=== PATIENT | female | born 1965 | race Caucasian/White ===

== ENCOUNTER 2016-09-13 09:02 | Day surgery (SDC) | payer MEDICARE, BC ==
[2016-09-13] MEDS ORDERED: DIPRIVAN 200 MG/20 ML IV ONE (10:00)
--- NOTE | 2016-09-13 13:15 | XRAY ---
Indication: Left L3-S1 MBB. Intraoperative fluoroscopy was provided for 6 seconds. Single digital spot image submitted for interpretation demonstrates 4 posterior spinal needles with the tips projecting adjacent to the left L3-S1 superior facets. Correlate with intraoperative findings/report.
[2016-09-13] MEDS ORDERED: Lactated Ringers IV ONE (15:27)
[2016-09-13] MEDS ORDERED: Kenalog-40 IM ONE (15:27)
[2016-09-13] MEDS ORDERED: Sensorcaine 0.25% 10 ML IJ ONE (15:27)
--- NOTE | 2016-09-13 16:35 | XRAY ---
6 seconds of fluoroscopy was used in surgery for a left MBB L3-S1.
== END 2016-09-13 12:40 | disposition home or self-care (01) ==
LOC: SDC-PAIN 09:02
PROVIDERS: ATTEND Pain Medicine Interventional Pain Medicine
DX: M51.36 Other intervertebral disc degeneration, lumbar region (principal); M47.816 Spondylosis without myelopathy or radiculopathy, lumbar region; M54.6 Pain in thoracic spine; Z79.891 Long term (current) use of opiate analgesic
CPT/HCPCS: 64493; 64494; 64495; 72020; 77003; J2704; J3301

== ENCOUNTER 2016-10-18 15:02 | Day surgery (SDC) | payer MEDICARE, BC ==
[~2016-10-18 15:02] MED LIST: DIPRIVAN 200 MG/20 ML IV ONE; Kenalog-40 IM ONE; Lactated Ringers 1,000 ML IV ONE; Sensorcaine 0.25% 10 ML IJ ONE
--- NOTE | 2016-10-18 19:05 | XRAY ---
Indication: Right L2-L5 MBB. Intraoperative fluoroscopy was provided for 8 seconds. Single digital spot image submitted for interpretation demonstrates posterior spinal needles with the tips projecting over the expected course of the right L2-L5 nerve roots. Correlate with intraoperative findings/report.
--- NOTE | 2016-10-19 08:42 | XRAY ---
8 seconds fluoroscopy time in surgery for right L2-5 MBB.
== END 2016-10-18 17:55 | disposition home or self-care (01) ==
LOC: SDC-PAIN 15:02
PROVIDERS: ATTEND Pain Medicine Interventional Pain Medicine
DX: M51.36 Other intervertebral disc degeneration, lumbar region (principal); M47.816 Spondylosis without myelopathy or radiculopathy, lumbar region; M54.6 Pain in thoracic spine
CPT/HCPCS: 64493; 64494; 64495; 72020; 77003; J2704; J3301

== ENCOUNTER 2017-08-22 11:58 | Day surgery (SDC) | payer MEDICARE, BC ==
[2017-08-22] MEDS ORDERED: DIPRIVAN 200 MG/20 ML IV ONE (11:59)
[2017-08-22] MEDS ORDERED: LIDOCAINE HCL 2% 100 MG/5 ML IJ ONE (11:59)
[2017-08-22] MEDS ORDERED: Marcaine 0.5% SDV 10 ML IJ ONE (11:59)
[2017-08-22] MEDS ORDERED: Lactated Ringers 1,000 ML IV ONE (11:59)
--- NOTE | 2017-08-22 14:52 | XRAY ---
15 seconds fluoroscopy time used in surgery for left L3-4 MBB.
--- NOTE | 2017-08-23 13:17 | OP ---
DATE OF PROCEDURE: 08/22/2017 1311 SURGEON: Tre Weston D.O. PREOPERATIVE DIAGNOSIS: Degenerative lumbar spine disease, spondylosis, low back pain. POSTOPERATIVE DIAGNOSIS: Degenerative lumbar spine disease, spondylosis, low back pain. PROCEDURE PERFORMED: Left L4-L3 medial branch block under fluoroscopic guidance. DESCRIPTION OF THE PROCEDURE: The patient was taken to the operating room and placed in the prone position on the table. Skin at the injection site was prepped and draped in sterile fashion. Under fluoroscopy, bony anatomy of the targeted injection site was visualized. Induction agent was given as per anesthesia while vital signs were monitored. Local anesthetic agent of 2 cc of 1% lidocaine preservative free was introduced to anesthetize the skin and the subcutaneous tissue through the injection site. Under fluoroscopic guidance, a #20 gauge standard spinal needle was advanced into the target medial branch through the oblique approach. The preservative free 0.5 cc of 1% lidocaine and 0.5 cc of 0.25 - 0.5% Marcaine were injected into each of the targeted medial branch nerve. After the needle was being removed, the skin was cleansed with alcohol and then a bandage was applied. No complications or adverse consequences were observed. The patient was returned to the holding area until stabilized before discharge to home. After the patient had been fully recovered from anesthesia, the patient states 100% pain reduction after the procedure. The patient will be followed up within ten days after the injection for re-evaluation.
--- NOTE | 2017-08-27 14:36 | XRAY ---
Indication: Left L3-L4 MBB. Intraoperative fluoroscopy was provided for 15 seconds. 2 digital spot images submitted for interpretation demonstrates posterior spinal needles with the tips projected over the expected course of the left L3 and L4 nerve roots. Correlate with intraoperative findings/report.
== END 2017-08-22 13:53 | disposition home or self-care (01) ==
LOC: SDC-PAIN 11:58
PROVIDERS: ATTEND Internal Medicine
DX: M46.96 Unspecified inflammatory spondylopathy, lumbar region (principal); M54.5 Low back pain; M67.832 Other specified disorders of synovium, left wrist
CPT/HCPCS: 64493; 64494; 72020; 77003; J2704

== ENCOUNTER 2017-09-26 10:03 | Day surgery (SDC) | payer MEDICARE, BC ==
[2017-09-26] MEDS ORDERED: XYLOCAINE-MPF 1% 5ML SDV IJ ONE (10:04)
[2017-09-26] MEDS ORDERED: DIPRIVAN 200 MG/20 ML IV ONE (10:04)
[2017-09-26] MEDS ORDERED: Xylocaine-Mpf 2% 5 Ml Vial IJ ONE (10:04)
[2017-09-26] MEDS ORDERED: Lactated Ringers 1,000 ML IV ONE (10:04)
[2017-09-26] MEDS ORDERED: Marcaine 0.5% SDV 10 ML IJ ONE (10:04)
--- NOTE | 2017-09-26 11:18 | XRAY ---
Indication: Left L4-L5 MBB. Intraoperative fluoroscopy was provided for 14 seconds. 3 digital spot images submitted for interpretation demonstrates 2 posterior spinal needle tips projecting over the left L3 and L4 pedicles. Correlate with intraoperative findings/report.
[2017-09-26] MEDS ORDERED: XYLOCAINE-MPF 1% 5ML SDV ONE (12:00)
--- NOTE | 2017-09-26 14:05 | XRAY ---
14 seconds fluoroscopy time in surgery for left L4-5 MBB.
--- NOTE | 2017-09-26 14:48 | OP ---
DATE OF PROCEDURE: 09/26/2017 1045 SURGEON: Tre Weston D.O. PREOPERATIVE DIAGNOSIS: Degenerative lumbar spine disease, spondylosis, low back pain. POSTOPERATIVE DIAGNOSIS: Degenerative lumbar spine disease, spondylosis, low back pain. PROCEDURE PERFORMED: Left L4-L3 medial branch block under fluoroscopic guidance. DESCRIPTION OF THE PROCEDURE: The patient was taken to the operating room and placed in the prone position on the table. Skin at the injection site was prepped and draped in sterile fashion. Under fluoroscopy, bony anatomy of the targeted injection site was visualized. Induction agent was given as per anesthesia while vital signs were monitored. Local anesthetic agent of 0.5 cc of 1% lidocaine preservative free was introduced to anesthetize the skin and the subcutaneous tissue through the injection site. Under fluoroscopic guidance, a #20 gauge standard spinal needle was advanced into the target medial branch through the oblique approach. The preservative free 0.5 cc of 1% lidocaine and 0.5 cc of 0.25% Marcaine were injected into each of the targeted medial branch nerve. After the needle was being removed, the skin was cleansed with alcohol and then a bandage was applied. No complications or adverse consequences were observed. The patient was returned to the holding area until stabilized before discharge to home. Preoperative pain level is 10 out of 10 and postoperative pain level is 2 out of 10. The patient will be followed up within ten days after the injection for re-evaluation.
== END 2017-09-26 11:30 | disposition home or self-care (01) ==
LOC: SDC-PAIN 10:03
PROVIDERS: ATTEND Internal Medicine
DX: M46.96 Unspecified inflammatory spondylopathy, lumbar region (principal); M62.838 Other muscle spasm; Z79.891 Long term (current) use of opiate analgesic
CPT/HCPCS: 64493; 64494; 72020; 76000; J2704

== ENCOUNTER 2017-10-24 13:19 | Day surgery (SDC) | payer MEDICARE, BC ==
[2017-10-24] MEDS ORDERED: Marcaine 0.5% SDV 10 ML IJ ONE (13:20)
[2017-10-24] MEDS ORDERED: DIPRIVAN 200 MG/20 ML IV ONE (13:20)
[2017-10-24] MEDS ORDERED: Xylocaine-Mpf 2% 5 Ml Vial IJ ONE ×2 (13:20)
[2017-10-24] MEDS ORDERED: Lactated Ringers 1,000 ML IV ONE (14:15)
--- NOTE | 2017-10-24 15:40 | XRAY ---
Indication: Left L4-L5 RFA. Intraoperative fluoroscopy was provided for 22 seconds. 2 digital spot images submitted for interpretation demonstrates posterior spinal needle tips projecting over the left L4 and L5 pedicles. Correlate with intraoperative findings/report.
--- NOTE | 2017-10-24 17:00 | XRAY ---
22 seconds fluoroscopy time in surgery for left L4-5 RFA.
--- NOTE | 2017-10-25 11:26 | OP ---
DATE OF PROCEDURE: 10/24/2017 1428 SURGEON: Tre Weston D.O. PREOPERATIVE DIAGNOSIS: Degenerative lumbosacral spine disease, spondylosis, low back pain. POSTOPERATIVE DIAGNOSIS: Degenerative lumbosacral spine disease, spondylosis, low back pain. PROCEDURES PERFORMED: Left L4, L3 medial branch radiofrequency ablation under fluoroscopic guidance. DESCRIPTION OF PROCEDURE: The patient was taken to the operating room and laid in the prone position on the table. The skin over the injection site was prepped and draped in sterile fashion. Under fluoroscopy bony anatomy of the target injection site was visualized. Induction agent was given as per anesthesia while vital signs were monitored. Local anesthetic agent was introduced to anesthetize the skin and the subcutaneous tissue through the injection site. Under fluoroscopic guidance a standard size spinal needle with cannula was advanced into the target medial branch nerve as per standard protocol. Before the radiofrequency ablation motor and sensory nerve testing was conducted as per protocol. Under the safety guidance which ensured no motor nerves being involved, L4, L3 radiofrequency ablation was conducted at 80 degrees Celsius for 90 seconds as per standard protocol. After the spinal needle with the cannula was removed the skin was cleansed with alcohol and then a bandage was applied. No complications or adverse occurrences were observed. The patient was returned to the holding area until stabilized before being discharged to home. The preoperative pain level is 10 out of 10 and the postoperative pain level is 3 out of 10. The patient will be followed up within 10 days after the procedure for re-evaluation.
== END 2017-10-24 15:15 | disposition home or self-care (01) ==
LOC: SDC-PAIN 13:19
PROVIDERS: ATTEND Internal Medicine
DX: M46.96 Unspecified inflammatory spondylopathy, lumbar region (principal); M62.838 Other muscle spasm; M51.36 Other intervertebral disc degeneration, lumbar region; Z79.891 Long term (current) use of opiate analgesic
CPT/HCPCS: 64635; 64636; 72020; 77003; J2704

== ENCOUNTER 2017-11-21 12:51 | Day surgery (SDC) | payer MEDICARE, BC ==
[2017-11-21] MEDS ORDERED: XYLOCAINE-MPF 1% 5ML SDV IJ ONE (12:52)
[2017-11-21] MEDS ORDERED: Marcaine Mpf 0.5% Vial 30 Ml IJ ONE (12:52)
[2017-11-21] MEDS ORDERED: DIPRIVAN 200 MG/20 ML IV ONE (12:52)
[2017-11-21] MEDS ORDERED: Lactated Ringers 1,000 ML IV ONE (13:12)
--- NOTE | 2017-11-21 18:33 | XRAY ---
Exam: Single view spine from 11/21/2017. Comparison: Single view spine from 10/24/2017. Indication: Right L3-L5 MBB Findings: 24 seconds of intraoperative fluoroscopy time was utilized using the C-arm. 3 PA fluoroscopic images are submitted for evaluation. Degenerative disc disease is seen at L4-L5, more prominent to the right of midline. Spinal needle tips are seen projected over the upper aspect of the right L3 pedicle and L4 pedicle as well as the central aspect of the right L5 pedicle. Please correlate with intraoperative findings/report.
--- NOTE | 2017-11-22 08:05 | XRAY ---
24 seconds fluoroscopy time in surgery for right L3-5 MBB.
--- NOTE | 2017-11-22 09:27 | OP ---
DATE OF PROCEDURE: 11/21/2017 1419 SURGEON: Tre Weston D.O. PREOPERATIVE DIAGNOSIS: Degenerative lumbar spine disease, spondylosis, low back pain. POSTOPERATIVE DIAGNOSIS: Degenerative lumbar spine disease, spondylosis, low back pain. PROCEDURE PERFORMED: Right L4, L3, L2 medial branch block under fluoroscopic guidance. DESCRIPTION OF THE PROCEDURE: The patient was taken to the operating room and placed in the prone position on the table. Skin at the injection site was prepped and draped in sterile fashion. Under fluoroscopy, bony anatomy of the targeted injection site was visualized. Induction agent was given as per anesthesia while vital signs were monitored. The medication used for this procedure is 3 cc preservative-free 0.5% Marcaine. The local anesthetic agent used is preservative-free 4 cc of 1% lidocaine. Under fluoroscopic guidance, a #20 gauge standard spinal needle was advanced into the target medial branch through the oblique approach. After the needle was being removed, the skin was cleansed with alcohol and then a bandage was applied. No complications or adverse consequences were observed. The patient was returned to the holding area until stabilized before discharge to home. Preoperative pain level is 10 out of 10 and the postoperative pain level is 2 out of 10. The patient will be followed up within ten days after the injection for re-evaluation.
== END 2017-11-21 15:00 | disposition home or self-care (01) ==
LOC: SDC-PAIN 12:51
PROVIDERS: ATTEND Internal Medicine
DX: M46.96 Unspecified inflammatory spondylopathy, lumbar region (principal); M62.838 Other muscle spasm; M51.36 Other intervertebral disc degeneration, lumbar region; Z79.891 Long term (current) use of opiate analgesic
CPT/HCPCS: 64494; 64495; 64508; 72020; 77003; J2704

== ENCOUNTER 2018-08-07 10:07 | Day surgery (SDC) | payer MEDICARE, BC ==
[2018-08-07] MEDS ORDERED: DIPRIVAN 200 MG/20 ML IV ONE (10:08)
[2018-08-07] MEDS ORDERED: Depo-Medrol 40 MG/ML IM ONE (10:08)
[2018-08-07] MEDS ORDERED: Xylocaine-Mpf 2% 5 Ml Vial IJ ONE (10:08)
--- NOTE | 2018-08-07 12:23 | XRAY ---
7 seconds fluoroscopy time in surgery for bilateral L4-S1 MBB.
--- NOTE | 2018-08-07 12:33 | XRAY ---
Indication: Bilateral L4-S1 MBB. Intraoperative fluoroscopy was provided for 7 seconds. Single digital spot image submitted for interpretation demonstrates posterior spinal needle tips projecting over the expected course of the left and right L4-S1 nerve roots. Correlate with intraoperative findings/report.
[2018-08-07] MEDS ORDERED: Lactated Ringers 1,000 ML IV ONE (15:00)
== END 2018-08-07 11:47 | disposition home or self-care (01) ==
LOC: SDC-PAIN 10:07
PROVIDERS: ATTEND Psychiatry & Neurology Pain Medicine
DX: M47.816 Spondylosis without myelopathy or radiculopathy, lumbar region (principal); I10 Essential (primary) hypertension; Z79.899 Other long term (current) drug therapy
CPT/HCPCS: 72020; 77002; J1030; J2704

== ENCOUNTER 2018-09-04 12:12 | Day surgery (SDC) | payer MEDICARE, BC ==
[2018-09-04] MEDS ORDERED: Xylocaine 1% Vial 30 ML PF IJ ONE (12:13)
[2018-09-04] MEDS ORDERED: DIPRIVAN 200 MG/20 ML IV ONE (12:13)
[2018-09-04] MEDS ORDERED: Ketamine HCl 50 MG/ML IV ONE (12:13)
[2018-09-04] MEDS ORDERED: Marcaine 0.5% SDV 10 ML IJ ONE (12:13)
[2018-09-04] MEDS ORDERED: Depo-Medrol 40 MG/ML IM ONE (12:13)
[2018-09-04] MEDS ORDERED: Lactated Ringers 1,000 ML IV ONE (14:38)
--- NOTE | 2018-09-04 16:31 | XRAY ---
9 seconds fluoroscopy time in surgery for bilateral L4-S1 MBB.
--- NOTE | 2018-09-04 16:31 | XRAY ---
Indication: L4-S1 MBB. Intraoperative fluoroscopy was provided for 9 seconds. Single digital spot image submitted for interpretation demonstrates posterior needle tips projecting over the expected course of the left and right L4-S1 nerve roots. Correlate with intraoperative findings/report.
== END 2018-09-04 14:19 | disposition home or self-care (01) ==
LOC: SDC-PAIN 12:12
PROVIDERS: ATTEND Psychiatry & Neurology Pain Medicine
DX: M47.816 Spondylosis without myelopathy or radiculopathy, lumbar region (principal); I10 Essential (primary) hypertension
CPT/HCPCS: 72100; 77002; J1030; J2001; J2704

== ENCOUNTER 2018-10-16 11:07 | Day surgery (SDC) | payer BC, MEDICARE ==
[2018-10-16] MEDS ORDERED: Marcaine 0.5% SDV 10 ML IJ ONE (11:08)
[2018-10-16] MEDS ORDERED: DIPRIVAN 200 MG/20 ML IV ONE (11:08)
[2018-10-16] MEDS ORDERED: Ketamine HCl 50 MG/ML IV ONE (11:08)
[2018-10-16] MEDS ORDERED: Xylocaine-Mpf 2 ML IJ ONE (11:08)
[2018-10-16] MEDS ORDERED: Depo-Medrol 40 MG/ML IM ONE (11:08)
[2018-10-16] MEDS ORDERED: Xylocaine 1% Vial 30 ML PF IJ ONE (11:08)
--- NOTE | 2018-10-16 14:14 | XRAY ---
12 seconds fluoroscopy time in surgery for left L4-S1 RFA
--- NOTE | 2018-10-16 14:24 | XRAY ---
Indication: Left L4-S1 RFA. Intraoperative fluoroscopy was provided for 12 seconds. 2 digital spot images submitted for interpretation demonstrates posterior needle tips projecting over the expected course of the left L4-S1 nerve roots. Correlate with intraoperative findings/report.
[2018-10-16] MEDS ORDERED: Lactated Ringers 1,000 ML IV ONE (15:40)
== END 2018-10-16 13:37 | disposition home or self-care (01) ==
LOC: SDC-PAIN 11:07
PROVIDERS: ATTEND Psychiatry & Neurology Pain Medicine
DX: M47.816 Spondylosis without myelopathy or radiculopathy, lumbar region (principal); Z79.899 Other long term (current) drug therapy; I10 Essential (primary) hypertension; F32.9 Major depressive disorder, single episode, unspecified; F41.9 Anxiety disorder, unspecified
CPT/HCPCS: 64635; 64636; 72020; 77002; J1030; J2001; J2704

== ENCOUNTER 2018-10-23 12:01 | Day surgery (SDC) | payer MEDICARE ==
[2018-10-23] MEDS ORDERED: Ketamine HCl 50 MG/ML IJ ONE (12:02)
[2018-10-23] MEDS ORDERED: DIPRIVAN 200 MG/20 ML IV ONE (12:02)
[2018-10-23] MEDS ORDERED: Depo-Medrol 40 MG/ML IM ONE (12:02)
[2018-10-23] MEDS ORDERED: Marcaine 0.5% SDV 10 ML IJ ONE (12:02)
[2018-10-23] MEDS ORDERED: Xylocaine 1% Vial 30 ML PF IJ ONE (12:02)
--- NOTE | 2018-10-23 14:39 | XRAY ---
Indication: Right L4-S1 RFA. Intraoperative fluoroscopy was provided for 20 seconds. 2 digital spot images submitted for interpretation demonstrates posterior needle tips projecting over the expected course of the right L4-S1 nerve roots. Correlate with intraoperative findings/report.
--- NOTE | 2018-10-23 14:41 | XRAY ---
20 seconds of fluoroscopy was used in surgery for a right L4-L5, L5-S1 RFA.
[2018-10-23] MEDS ORDERED: Lactated Ringers 1,000 ML IV ONE (14:56)
== END 2018-10-23 13:42 | disposition home or self-care (01) ==
LOC: SDC-PAIN 12:01
PROVIDERS: ATTEND Psychiatry & Neurology Pain Medicine
DX: M47.816 Spondylosis without myelopathy or radiculopathy, lumbar region (principal); I10 Essential (primary) hypertension; G89.29 Other chronic pain; F32.9 Major depressive disorder, single episode, unspecified; F41.9 Anxiety disorder, unspecified
CPT/HCPCS: 64635; 64636; 72100; 77002; J1030; J2001; J2704

== ENCOUNTER 2019-03-12 14:11 | Day surgery (SDC) | payer BC, MEDICARE ==
[2019-03-12] MEDS ORDERED: Marcaine 0.5% SDV 10 ML IJ ONE (14:12)
[2019-03-12] MEDS ORDERED: Depo-Medrol 40 MG/ML IM ONE (14:12)
[2019-03-12] MEDS ORDERED: Xylocaine 1% Vial 30 ML PF IJ ONE (14:12)
--- NOTE | 2019-03-12 16:34 | XRAY ---
Indication: Bilateral SI joint injection. Intraoperative fluoroscopy was provided for 11 seconds. 4 digital spot images submitted for interpretation demonstrates posterior needle tip projecting over the inferior left and right SI joint. Correlate with intraoperative findings/report.
--- NOTE | 2019-03-12 16:36 | XRAY ---
11 seconds fluoroscopy time in surgery for bilateral SI joint injections.
== END 2019-03-12 15:22 | disposition home or self-care (01) ==
LOC: SDC-PAIN 14:11
PROVIDERS: ATTEND Psychiatry & Neurology Pain Medicine
DX: M46.1 Sacroiliitis, not elsewhere classified (principal); I10 Essential (primary) hypertension; F41.8 Other specified anxiety disorders; G89.29 Other chronic pain; Z79.899 Other long term (current) drug therapy
CPT/HCPCS: 27096; 72202; 77002; J1030; J2001; G0260

== ENCOUNTER 2020-01-07 13:28 | Day surgery (SDC) | payer BC, MEDICARE ==
[2020-01-07] MEDS ORDERED: Marcaine 0.5% SDV 10 ML IJ ONE (13:29)
[2020-01-07] MEDS ORDERED: Depo-Medrol 40 MG/ML IM ONE (13:29)
[2020-01-07] MEDS ORDERED: Ketamine HCl 50 MG/ML ONE (14:45)
[2020-01-07] MEDS ORDERED: DIPRIVAN 200 MG/20 ML IV ONE (14:45)
[2020-01-07] MEDS ORDERED: Lactated Ringers 1,000 ML IV ONE (15:54)
--- NOTE | 2020-01-07 16:12 | XRAY ---
Indication: Bilateral SI joint injection. Intraoperative fluoroscopy was provided for 17 seconds. 4 digital spot images submitted for interpretation demonstrates posterior needle tip projecting over the inferior left and right SI joints. Correlate with intraoperative findings/report.
--- NOTE | 2020-01-07 16:14 | XRAY ---
17 seconds fluoroscopy time in surgery for bilateral SI joint injections.
== END 2020-01-07 15:15 | disposition home or self-care (01) ==
LOC: SDC-PAIN 13:28
PROVIDERS: ATTEND Psychiatry & Neurology Pain Medicine
DX: M46.1 Sacroiliitis, not elsewhere classified (principal); I10 Essential (primary) hypertension; G89.29 Other chronic pain; F41.8 Other specified anxiety disorders
CPT/HCPCS: 27096; 72202; 77002; J1030; J2704; G0260

== ENCOUNTER 2020-02-18 12:58 | Day surgery (SDC) | payer BC, MEDICARE ==
[2020-02-18] MEDS ORDERED: BUPIVACAINE 0.5% VIAL IJ ONE (12:59)
[2020-02-18] MEDS ORDERED: Depo-Medrol 40 MG/ML IM ONE (12:59)
[2020-02-18] MEDS ORDERED: Ketamine HCl 50 MG/ML ONE (14:17)
[2020-02-18] MEDS ORDERED: DIPRIVAN 200 MG/20 ML IV ONE (14:17)
--- NOTE | 2020-02-18 14:51 | XRAY ---
Indication: Bilateral L4-S1 MBB. Intraoperative fluoroscopy was provided for 4 seconds. Single digital spot image submitted for interpretation demonstrates posterior needle tips projecting over the expected left and right L4-S1 nerve roots. Correlate with intraoperative findings/report.
[2020-02-18] MEDS ORDERED: Lactated Ringers 1,000 ML IV ONE (15:26)
--- NOTE | 2020-02-18 17:17 | XRAY ---
4 seconds fluoroscopy time in surgery for bilateral L4-S1 MBB.
== END 2020-02-18 14:45 | disposition home or self-care (01) ==
LOC: SDC-PAIN 12:58
PROVIDERS: ATTEND Psychiatry & Neurology Pain Medicine
DX: M47.816 Spondylosis without myelopathy or radiculopathy, lumbar region (principal); I10 Essential (primary) hypertension; F41.8 Other specified anxiety disorders; Z79.899 Other long term (current) drug therapy
CPT/HCPCS: 64493; 64494; 72020; 77002; J1030; J2704

== ENCOUNTER 2020-09-01 12:56 | Day surgery (SDC) | payer BC, MEDICARE ==
[2020-09-01] MEDS ORDERED: BUPIVACAINE 0.5% VIAL IJ ONE (12:57)
[2020-09-01] MEDS ORDERED: Xylocaine 1% Vial 30 ML PF IJ ONE (12:57)
[2020-09-01] MEDS ORDERED: Depo-Medrol 40 MG/ML IM ONE (12:57)
[2020-09-01] MEDS ORDERED: DIPRIVAN 200 MG/20 ML IV ONE (14:15)
[2020-09-01] MEDS ORDERED: Ketamine HCl 50 MG/ML ONE (14:15)
--- NOTE | 2020-09-01 14:46 | XRAY ---
Indication: Left L4-S1 RFA. Intraoperative fluoroscopy provided for 17 seconds. 3 digital spot images submitted for interpretation demonstrates posterior needle tips projecting over the expected left L4-S1 nerve roots. Correlate with intraoperative findings/report.
--- NOTE | 2020-09-01 15:16 | XRAY ---
17 seconds fluoroscopy time in surgery for left L4-S1 RFA.
[2020-09-01] MEDS ORDERED: Lactated Ringers 1,000 ML IV ONE (16:17)
== END 2020-09-01 14:42 | disposition home or self-care (01) ==
LOC: SDC-PAIN 12:56
PROVIDERS: ATTEND Psychiatry & Neurology Pain Medicine
DX: M47.817 Spondylosis without myelopathy or radiculopathy, lumbosacral region (principal); I10 Essential (primary) hypertension; F41.9 Anxiety disorder, unspecified; F32.9 Major depressive disorder, single episode, unspecified; G89.29 Other chronic pain; Z79.899 Other long term (current) drug therapy
CPT/HCPCS: 64635; 64636; 72100; 77002; J1030; J2001; J2704

== ENCOUNTER 2020-09-22 11:42 | Day surgery (SDC) | payer BC, MEDICARE ==
[2020-09-22] MEDS ORDERED: Xylocaine 1% Vial 30 ML PF IJ ONE (11:43)
[2020-09-22] MEDS ORDERED: Depo-Medrol 40 MG/ML IM ONE (11:43)
[2020-09-22] MEDS ORDERED: BUPIVACAINE 0.5% VIAL IJ ONE (11:43)
[2020-09-22] MEDS ORDERED: Ketamine HCl 50 MG/ML ONE (13:41)
[2020-09-22] MEDS ORDERED: DIPRIVAN 200 MG/20 ML IV ONE (13:41)
[2020-09-22] MEDS ORDERED: Lactated Ringers 1,000 ML IV ONE (14:37)
--- NOTE | 2020-09-22 15:20 | XRAY ---
Indication: Right L4-S1 RFA. Intraoperative fluoroscopy provided for 16 seconds. 3 digital spot images submitted for interpretation demonstrate posterior needle tips projecting over the expected right L4-S1 nerve roots. Correlate with intraoperative findings/report.
--- NOTE | 2020-09-22 16:22 | XRAY ---
16 seconds of fluoroscopy was used in surgery for a right L4-L5 and L5-S1 RFA.
== END 2020-09-22 14:06 | disposition home or self-care (01) ==
LOC: SDC-PAIN 11:42
PROVIDERS: ATTEND Psychiatry & Neurology Pain Medicine
DX: M47.816 Spondylosis without myelopathy or radiculopathy, lumbar region (principal); I10 Essential (primary) hypertension; F41.8 Other specified anxiety disorders
CPT/HCPCS: 64635; 64636; 72100; 77002; J1030; J2001; J2704

== ENCOUNTER 2021-02-16 12:12 | Day surgery (SDC) | payer BC, MEDICARE ==
[2021-02-16] MEDS ORDERED: Xylocaine 1% Vial 30 ML PF IJ ONE (12:13)
[2021-02-16] MEDS ORDERED: Depo-Medrol 40 MG/ML IM ONE (12:13)
[2021-02-16] MEDS ORDERED: DIPRIVAN 200 MG/20 ML IV ONE (13:07)
[2021-02-16] MEDS ORDERED: Ketamine HCl 50 MG/ML ONE (13:07)
[2021-02-16] MEDS ORDERED: Lactated Ringers 1,000 ML IV ONE (14:06)
--- NOTE | 2021-02-16 15:27 | XRAY ---
Indication: Right T9-T12 MBB. Intraoperative fluoroscopy provided for 19 seconds. Single digital spot image submitted for interpretation demonstrates posterior needle tips projecting over the expected right T9-T12 nerve roots. Correlate with intraoperative findings/report.
--- NOTE | 2021-02-16 17:14 | XRAY ---
19 seconds fluoroscopy time in surgery for tight T9-T12 MBB.
== END 2021-02-16 14:05 | disposition home or self-care (01) ==
LOC: SDC-PAIN 12:12
PROVIDERS: ATTEND Psychiatry & Neurology Pain Medicine
DX: M47.814 Spondylosis without myelopathy or radiculopathy, thoracic region (principal); Z79.899 Other long term (current) drug therapy
CPT/HCPCS: 64490; 64491; 64492; 72072; 77002; J1030; J2001; J2704

== ENCOUNTER 2021-04-06 11:18 | Day surgery (SDC) | payer BC, MEDICARE ==
[2021-04-06] MEDS ORDERED: LIDOCAINE HCL 2% 100 MG/5 ML IJ ONE (11:19)
[2021-04-06] MEDS ORDERED: Depo-Medrol 40 MG/ML IM ONE (11:19)
[2021-04-06] MEDS ORDERED: DIPRIVAN 200 MG/20 ML IV ONE (13:48)
--- NOTE | 2021-04-06 15:18 | XRAY ---
Indication: Left T8-T11 MBB. Intraoperative fluoroscopy provided for 20 seconds. Single digital spot image submitted for interpretation demonstrates posterior needle tips projecting over the expected left T8-T11. Correlate with intraoperative findings/report.
[2021-04-06] MEDS ORDERED: Lactated Ringers 1,000 ML IV ONE (15:27)
--- NOTE | 2021-04-06 17:02 | XRAY ---
20 seconds fluoroscopy time in surgery for left T8-T11 MBB.
== END 2021-04-06 14:05 | disposition home or self-care (01) ==
LOC: SDC-PAIN 11:18
PROVIDERS: ATTEND Psychiatry & Neurology Pain Medicine
DX: M47.814 Spondylosis without myelopathy or radiculopathy, thoracic region (principal); Z79.899 Other long term (current) drug therapy
CPT/HCPCS: 64490; 64491; 64492; 72072; 77002; J1030; J2704

== ENCOUNTER 2021-05-04 13:47 | Day surgery (SDC) | payer BC, MEDICARE ==
[2021-05-04] MEDS ORDERED: Depo-Medrol 40 MG/ML IM ONE (13:48)
[2021-05-04] MEDS ORDERED: BUPIVACAINE 0.5% VIAL IJ ONE (13:48)
[2021-05-04] MEDS ORDERED: DIPRIVAN 200 MG/20 ML IV ONE (15:40)
[2021-05-04] MEDS ORDERED: Lactated Ringers 1,000 ML IV ONE (15:59)
--- NOTE | 2021-05-04 17:04 | XRAY ---
21 seconds fluoroscopy time in surgery for left T8-T11 MBB.
--- NOTE | 2021-05-04 21:40 | XRAY ---
Indication: Left T8-T11 MBB. Intraoperative fluoroscopy provided for 21 seconds. Single digital spot image submitted for interpretation demonstrates posterior needle tips projecting over the expected left T8-T11 nerve roots. Correlate with intraoperative findings/report.
== END 2021-05-04 16:06 | disposition home or self-care (01) ==
LOC: SDC-PAIN 13:47
PROVIDERS: ATTEND Psychiatry & Neurology Pain Medicine
DX: M47.814 Spondylosis without myelopathy or radiculopathy, thoracic region (principal); F41.9 Anxiety disorder, unspecified; F32.9 Major depressive disorder, single episode, unspecified; I10 Essential (primary) hypertension; M19.90 Unspecified osteoarthritis, unspecified site; Z79.899 Other long term (current) drug therapy
CPT/HCPCS: 64490; 64491; 64492; 72072; 77002; J1030; J2704

== ENCOUNTER 2021-06-09 09:55 | Day surgery (SDC) | payer BC, MEDICARE ==
[2021-06-09] MEDS ORDERED: Depo-Medrol 40 MG/ML IM ONE (09:56)
[2021-06-09] MEDS ORDERED: BUPIVACAINE 0.5% VIAL IJ ONE (09:56)
[2021-06-09] MEDS ORDERED: DIPRIVAN 200 MG/20 ML IV ONE (12:03)
[2021-06-09] MEDS ORDERED: Lactated Ringers 1,000 ML IV ONE (13:31)
--- NOTE | 2021-06-09 13:38 | XRAY ---
Indication: Right T8-T11 MBB. Intraoperative fluoroscopy provided for 15 seconds. Single digital spot image submitted for interpretation demonstrates posterior needle tips projecting over the expected right T8-T11 nerve roots. Correlate with intraoperative findings/report.
--- NOTE | 2021-06-09 14:15 | XRAY ---
15 seconds fluoroscopy time in surgery for right T8-T11 MBB.
== END 2021-06-09 12:30 | disposition home or self-care (01) ==
LOC: SDC-PAIN 09:55
PROVIDERS: ATTEND Psychiatry & Neurology Pain Medicine
DX: M47.814 Spondylosis without myelopathy or radiculopathy, thoracic region (principal); I10 Essential (primary) hypertension; Z79.899 Other long term (current) drug therapy
CPT/HCPCS: 64490; 64491; 64492; 72020; 77002; J1030; J2704

== ENCOUNTER 2021-08-03 12:40 | Day surgery (SDC) | payer BC, MEDICARE ==
[2021-08-03] MEDS ORDERED: Xylocaine 1% Vial 30 ML PF IJ ONE (12:41)
[2021-08-03] MEDS ORDERED: BUPIVACAINE 0.5% VIAL IJ ONE (12:41)
[2021-08-03] MEDS ORDERED: Depo-Medrol 40 MG/ML IM ONE (12:41)
[2021-08-03] MEDS ORDERED: DIPRIVAN 200 MG/20 ML IV ONE (15:44)
[2021-08-03] MEDS ORDERED: TORAdol 30 mg Injection ONE (16:05)
[2021-08-03] MEDS ORDERED: Lactated Ringers 1,000 ML IV ONE (16:22)
--- NOTE | 2021-08-03 16:31 | XRAY ---
Indication: Left T8-T11 RFA. Intraoperative fluoroscopy provided for 16 seconds. 2 digital spot images submitted for interpretation demonstrates posterior needle tips projecting over the expected left T8-T11 nerve roots. Correlate with intraoperative findings/report.
--- NOTE | 2021-08-03 16:35 | XRAY ---
16 seconds fluoroscopy time in surgery for left T8-T11 RFA.
== END 2021-08-03 16:15 | disposition home or self-care (01) ==
LOC: SDC-PAIN 12:40
PROVIDERS: ATTEND Psychiatry & Neurology Pain Medicine
DX: M47.814 Spondylosis without myelopathy or radiculopathy, thoracic region (principal); I10 Essential (primary) hypertension; Z79.899 Other long term (current) drug therapy
CPT/HCPCS: 01939; 64633; 64634; 72072; 77002; J1030; J1885; J2001; J2704

== ENCOUNTER 2021-08-10 11:08 | Day surgery (SDC) | payer BC, MEDICARE ==
[2021-08-10] MEDS ORDERED: BUPIVACAINE 0.5% VIAL IJ ONE (11:09)
[2021-08-10] MEDS ORDERED: Depo-Medrol 40 MG/ML IM ONE (11:09)
[2021-08-10] MEDS ORDERED: Xylocaine 1% Vial 30 ML PF IJ ONE (11:09)
[2021-08-10] MEDS ORDERED: DIPRIVAN 200 MG/20 ML IV ONE (12:09)
[2021-08-10] MEDS ORDERED: Lactated Ringers 1,000 ML IV ONE (12:19)
--- NOTE | 2021-08-10 13:20 | XRAY ---
Indication: Right T8-T11 RFA. Intraoperative fluoroscopy provided for 28 seconds. Single digital spot image submitted for interpretation demonstrates posterior needle tips projecting over the expected right T8-T11 nerve roots. Correlate with intraoperative findings/report.
--- NOTE | 2021-08-12 14:20 | XRAY ---
28 seconds of fluoroscopy was used in surgery for a right T8-T11 RFA.
== END 2021-08-10 12:40 | disposition home or self-care (01) ==
LOC: SDC-PAIN 11:08
PROVIDERS: ATTEND Psychiatry & Neurology Pain Medicine
DX: M47.814 Spondylosis without myelopathy or radiculopathy, thoracic region (principal); I10 Essential (primary) hypertension; Z79.899 Other long term (current) drug therapy
CPT/HCPCS: 01939; 64633; 64634; 72072; 77002; J1030; J2001; J2704

== ENCOUNTER 2021-10-19 13:29 | Day surgery (SDC) | payer BC, MEDICARE ==
[2021-10-19] MEDS ORDERED: Depo-Medrol 40 MG/ML IM ONE (13:30)
[2021-10-19] MEDS ORDERED: BUPIVACAINE 0.5% VIAL IJ ONE (13:30)
[2021-10-19] MEDS ORDERED: Xylocaine 1% Vial 30 ML PF IJ ONE (13:30)
--- NOTE | 2021-10-19 16:25 | XRAY ---
Indication: Left shoulder injection. Intraoperative fluoroscopy provided for 30 seconds. 2 digital spot image submitted for interpretation demonstrates needle tip projecting over the left glenohumeral joint superiorly. Small amount of contrast injected for needle tip placement. Correlate with intraoperative findings/report.
--- NOTE | 2021-10-19 17:04 | XRAY ---
30 seconds of fluoroscopy was used in surgery for a left shoulder intra-articular and subacromial bursa injections.
== END 2021-10-19 16:22 | disposition home or self-care (01) ==
LOC: SDC-PAIN 13:29
PROVIDERS: ATTEND Psychiatry & Neurology Pain Medicine
DX: M19.012 Primary osteoarthritis, left shoulder (principal); I10 Essential (primary) hypertension; Z79.899 Other long term (current) drug therapy
CPT/HCPCS: 20610; 73030; 77002; J1030; J2001; Q9966

== ENCOUNTER 2021-11-30 10:13 | Day surgery (SDC) | payer BC, MEDICARE ==
[2021-11-30] MEDS ORDERED: Depo-Medrol 40 MG/ML IM ONE (10:14)
[2021-11-30] MEDS ORDERED: Marcaine Mpf 0.5% Vial 30 Ml IJ ONE (10:14)
[2021-11-30] MEDS ORDERED: DIPRIVAN 200 MG/20 ML IV ONE (11:17)
[2021-11-30] MEDS ORDERED: Lactated Ringers 1,000 ML IV ONE (12:56)
--- NOTE | 2021-11-30 13:19 | XRAY ---
Indication: Bilateral L3-S1 MBB. Intraoperative fluoroscopy provided for 21 seconds. Single digital spot image submitted for interpretation demonstrates posterior needle tips projecting over the expected left and right L3-S1 nerve roots. Correlate with intraoperative findings/report.
--- NOTE | 2021-11-30 13:22 | XRAY ---
21 seconds fluoroscopy time in surgery for bilateral L3-S1 MBB.
== END 2021-11-30 11:50 | disposition home or self-care (01) ==
LOC: SDC-PAIN 10:13
PROVIDERS: ATTEND Psychiatry & Neurology Pain Medicine
DX: M47.816 Spondylosis without myelopathy or radiculopathy, lumbar region (principal); I10 Essential (primary) hypertension; Z79.899 Other long term (current) drug therapy
CPT/HCPCS: 64493; 64494; 64495; 72020; 77002; J1030; J2704

== ENCOUNTER 2021-12-28 13:59 | Day surgery (SDC) | payer BC, MEDICARE ==
[2021-12-28] MEDS ORDERED: Marcaine Mpf 0.5% Vial 30 Ml IJ ONE (14:00)
[2021-12-28] MEDS ORDERED: Depo-Medrol 40 MG/ML IM ONE (14:00)
[2021-12-28] MEDS ORDERED: XYLOCAINE-MPF 1% 5ML SDV IJ ONE (14:00)
[2021-12-28] MEDS ORDERED: DIPRIVAN 200 MG/20 ML IV ONE (16:06)
[2021-12-28] MEDS ORDERED: Lactated Ringers 1,000 ML IV ONE (16:35)
--- NOTE | 2021-12-28 19:53 | XRAY ---
Indication: Left L3-S1 RFA. Intraoperative fluoroscopy provided for 20 seconds. 3 digital spot image submitted for interpretation demonstrates posterior needle tips projecting over the expected left L3-S1 nerve roots. Correlate with intraoperative findings/report.
--- NOTE | 2021-12-29 09:20 | XRAY ---
20 seconds of fluoroscopy was used in surgery for a left L3-S1 RFA.
== END 2021-12-28 16:36 | disposition home or self-care (01) ==
LOC: SDC-PAIN 13:59
PROVIDERS: ATTEND Psychiatry & Neurology Pain Medicine
DX: M47.816 Spondylosis without myelopathy or radiculopathy, lumbar region (principal); Z79.899 Other long term (current) drug therapy
CPT/HCPCS: 64635; 64636; 72100; 77002; J1030; J2704

== ENCOUNTER 2022-01-04 13:51 | Day surgery (SDC) | payer BC, MEDICARE ==
[2022-01-04] MEDS ORDERED: Depo-Medrol 40 MG/ML IM ONE (13:52)
[2022-01-04] MEDS ORDERED: XYLOCAINE-MPF 1% 5ML SDV IJ ONE (13:52)
[2022-01-04] MEDS ORDERED: Marcaine Mpf 0.5% Vial 30 Ml IJ ONE (13:52)
[2022-01-04] MEDS ORDERED: DIPRIVAN 200 MG/20 ML IV ONE (16:01)
[2022-01-04] MEDS ORDERED: Lactated Ringers 1,000 ML IV ONE (16:29)
--- NOTE | 2022-01-04 16:43 | XRAY ---
Indication: Right L3-S1 RFA. Intraoperative fluoroscopy provided for 20 seconds. 4 digital spot image submitted for interpretation demonstrates posterior needle tips projecting over the expected right L3-S1 nerve roots. Correlate with intraoperative findings/report.
--- NOTE | 2022-01-04 17:14 | XRAY ---
20 seconds of fluoroscopy was used in surgery for a right L3-S1 RFA.
== END 2022-01-04 16:27 | disposition home or self-care (01) ==
LOC: SDC-PAIN 13:51
PROVIDERS: ATTEND Psychiatry & Neurology Pain Medicine
DX: M47.816 Spondylosis without myelopathy or radiculopathy, lumbar region (principal); Z79.899 Other long term (current) drug therapy
CPT/HCPCS: 64635; 64636; 72100; 77002; J1030; J2704

== ENCOUNTER 2022-06-08 09:42 | Day surgery (SDC) | payer BC, MEDICARE ==
[2022-06-08] MEDS ORDERED: LIDOCAINE HCL 2% 100 MG/5 ML IJ ONE (09:43)
[2022-06-08] MEDS ORDERED: Decadron 4 MG INJ IV ONE (09:43)
[2022-06-08] MEDS ORDERED: DIPRIVAN 200 MG/20 ML IV ONE (12:04)
[2022-06-08] MEDS ORDERED: Lactated Ringers 1,000 ML IV ONE (13:30)
--- NOTE | 2022-06-08 13:30 | XRAY ---
Indication: Right C2-C4 MBB. Intraoperative fluoroscopy provided for 9 seconds. 2 digital spot image submitted for interpretation demonstrates posterior needle tips projecting over the expected right C2-C4 nerve roots. Correlate with intraoperative findings/report.
--- NOTE | 2022-06-08 13:41 | XRAY ---
9 seconds fluoroscopy time in surgery for right C2-C4 MBB.
== END 2022-06-08 12:24 | disposition home or self-care (01) ==
LOC: SDC-PAIN 09:42
PROVIDERS: ATTEND Psychiatry & Neurology Pain Medicine
DX: M47.812 Spondylosis without myelopathy or radiculopathy, cervical region (principal); Z79.899 Other long term (current) drug therapy
CPT/HCPCS: 64490; 64491; 72040; 77002; J1100; J2704

== ENCOUNTER 2022-07-12 14:23 | Day surgery (SDC) | payer BC, MEDICARE ==
[2022-07-12] MEDS ORDERED: LIDOCAINE HCL 2% 100 MG/5 ML IJ ONE (14:24)
[2022-07-12] MEDS ORDERED: Depo-Medrol 40 MG/ML IM ONE (14:24)
[2022-07-12] MEDS ORDERED: DIPRIVAN 200 MG/20 ML IV ONE (16:43)
[2022-07-12] MEDS ORDERED: TORAdol 30 mg Injection ONE (16:58)
[2022-07-12] MEDS ORDERED: Lactated Ringers 1,000 ML IV ONE (17:06)
--- NOTE | 2022-07-12 21:28 | XRAY ---
Indication: Left C2-C4 MBB. Intraoperative fluoroscopy provided for 14 seconds. 2 digital spot image submitted for interpretation demonstrates posterior needle tips projecting over the expected left C2-C4 nerve roots. Correlate with intraoperative findings/report.
--- NOTE | 2022-07-13 09:19 | XRAY ---
14 seconds of fluoroscopy was used in surgery for a left C2-C4 MBB.
== END 2022-07-12 17:10 | disposition home or self-care (01) ==
LOC: SDC-PAIN 14:23
PROVIDERS: ATTEND Psychiatry & Neurology Pain Medicine
DX: M47.812 Spondylosis without myelopathy or radiculopathy, cervical region (principal); Z79.899 Other long term (current) drug therapy
CPT/HCPCS: 64490; 64491; 72040; 77002; J1030; J1885; J2704

== ENCOUNTER 2022-08-16 15:32 | Day surgery (SDC) | payer BC, MEDICARE ==
[2022-08-16] MEDS ORDERED: BUPIVACAINE 0.5% VIAL IJ ONE (15:33)
[2022-08-16] MEDS ORDERED: Decadron 4 MG INJ IV ONE (15:33)
[2022-08-16] MEDS ORDERED: DIPRIVAN 200 MG/20 ML IV ONE (18:18)
[2022-08-16] MEDS ORDERED: Lactated Ringers 1,000 ML IV ONE (18:36)
--- NOTE | 2022-08-17 10:57 | XRAY ---
9 seconds of fluoroscopy was used in surgery for a right C2-C4 MBB.
== END 2022-08-16 18:50 | disposition home or self-care (01) ==
LOC: SDC-PAIN 15:32
PROVIDERS: ATTEND Psychiatry & Neurology Pain Medicine
DX: M47.812 Spondylosis without myelopathy or radiculopathy, cervical region (principal); Z79.899 Other long term (current) drug therapy
CPT/HCPCS: 64490; 64491; 72040; 77002; J1100; J2704

== ENCOUNTER 2022-09-27 14:49 | Day surgery (SDC) | payer BC, MEDICARE ==
[2022-09-27] MEDS ORDERED: BUPIVACAINE 0.5% VIAL IJ ONE (14:50)
[2022-09-27] MEDS ORDERED: Decadron 4 MG INJ IV ONE (14:50)
[2022-09-27] MEDS ORDERED: Lactated Ringers 1,000 ML IV ONE (16:45)
[2022-09-27] MEDS ORDERED: DIPRIVAN 200 MG/20 ML IV ONE (16:51)
--- NOTE | 2022-09-27 18:53 | XRAY ---
Indication: Left C2-C4 MBB. Intraoperative fluoroscopy provided for 9 seconds. 2 digital spot image submitted for interpretation demonstrates posterior needle tips projecting over the expected left CTF and C4 nerve roots. Correlate with intraoperative findings/report.
--- NOTE | 2022-09-28 09:56 | XRAY ---
9 seconds of fluoroscopy was used in surgery for a left C2-C4 MBB.
== END 2022-09-28 09:39 | disposition home or self-care (01) ==
LOC: SDC-PAIN 14:49
PROVIDERS: ATTEND Psychiatry & Neurology Pain Medicine
DX: M47.812 Spondylosis without myelopathy or radiculopathy, cervical region (principal); Z79.899 Other long term (current) drug therapy
CPT/HCPCS: 64490; 64491; 72040; 77002; J1100; J2704

== ENCOUNTER 2022-11-08 14:53 | Day surgery (SDC) | payer BC, MEDICARE ==
[2022-11-08] MEDS ORDERED: LIDOCAINE HCL 1% 50 MG/5 ML VL PF IJ ONE (14:54)
[2022-11-08] MEDS ORDERED: Decadron 4 MG INJ IV ONE (14:54)
[2022-11-08] MEDS ORDERED: BUPIVACAINE 0.5% VIAL IJ ONE (14:54)
[2022-11-08] MEDS ORDERED: DIPRIVAN 200 MG/20 ML IV ONE (16:09)
[2022-11-08] MEDS ORDERED: Lactated Ringers 1,000 ML IV ONE (16:36)
--- NOTE | 2022-11-08 23:30 | XRAY ---
Indication: Right C2-C4 RFA. Intraoperative fluoroscopy provided for 29 seconds. 4 digital spot image submitted for interpretation demonstrates posterior needle tips projecting over the expected right C2-C4 nerve roots. Correlate with intraoperative findings/report.
--- NOTE | 2022-11-09 15:07 | XRAY ---
29 seconds of fluoroscopy was used in surgery for a right C2-C4 RFA.
== END 2022-11-08 16:45 | disposition home or self-care (01) ==
LOC: SDC-PAIN 14:53
PROVIDERS: ATTEND Psychiatry & Neurology Pain Medicine
DX: M47.812 Spondylosis without myelopathy or radiculopathy, cervical region (principal); Z79.899 Other long term (current) drug therapy
CPT/HCPCS: 64633; 64634; 72040; 77002; J1100; J2001; J2704

== ENCOUNTER 2022-11-15 15:30 | Day surgery (SDC) | payer BC, MEDICARE ==
[2022-11-15] MEDS ORDERED: LIDOCAINE HCL 1% 50 MG/5 ML VL PF IJ ONE (15:31)
[2022-11-15] MEDS ORDERED: BUPIVACAINE 0.5% VIAL IJ ONE (15:31)
[2022-11-15] MEDS ORDERED: Decadron 4 MG INJ IV ONE (15:31)
[2022-11-15] MEDS ORDERED: DIPRIVAN 200 MG/20 ML IV ONE ×2 (17:31→17:38)
[2022-11-15] MEDS ORDERED: Lactated Ringers 1,000 ML IV ONE (17:45)
--- NOTE | 2022-11-15 21:58 | XRAY ---
Indication: Left C2-C4 RFA. Intraoperative fluoroscopy provided for 17 seconds. 2 digital spot image submitted for interpretation demonstrates posterior needle tips projecting over the expected left C2-C4 nerve roots. Correlate with intraoperative findings/report.
== END 2022-11-15 18:05 | disposition home or self-care (01) ==
LOC: SDC-PAIN 15:30
PROVIDERS: ATTEND Psychiatry & Neurology Pain Medicine
DX: M47.812 Spondylosis without myelopathy or radiculopathy, cervical region (principal); Z79.899 Other long term (current) drug therapy
CPT/HCPCS: 64633; 64634; 72040; 77002; J1100; J2001; J2704

== ENCOUNTER 2023-05-02 14:47 | Day surgery (SDC) | payer BC, MEDICARE ==
[2023-05-02] MEDS ORDERED: Depo-Medrol 40 MG/ML IM ONE (14:48)
[2023-05-02] MEDS ORDERED: LIDOCAINE HCL 1% 50 MG/5 ML VL PF IJ ONE (14:48)
[2023-05-02] MEDS ORDERED: BUPIVACAINE 0.5% VIAL IJ ONE (14:48)
[2023-05-02] MEDS ORDERED: DIPRIVAN 200 MG/20 ML IV ONE (18:11)
[2023-05-02] MEDS ORDERED: Lactated Ringers 1,000 ML IV ONE (19:07)
--- NOTE | 2023-05-02 20:58 | XRAY ---
Indication: Left shoulder and subacromial bursa injection. Intraoperative fluoroscopy provided for 21 seconds. 3 digital spot image submitted for interpretation demonstrates needle tip projecting over the left glenohumeral joint superiorly. Second needle tip subacromial. Small amount of contrast injected for both needle tip placement. Correlate with intraoperative findings/report.
--- NOTE | 2023-05-02 20:59 | XRAY ---
21 seconds of fluoroscopy was used in surgery for a left shoulder intra-articular and subacromial bursa injections.
== END 2023-05-02 18:40 | disposition home or self-care (01) ==
LOC: SDC-PAIN 14:47
PROVIDERS: ATTEND Psychiatry & Neurology Pain Medicine
DX: M19.012 Primary osteoarthritis, left shoulder (principal); M75.52 Bursitis of left shoulder; M79.18 Myalgia, other site; Z79.899 Other long term (current) drug therapy
CPT/HCPCS: 20553; 20610; 73030; 77002; J1030; J2001; J2704; Q9966

== ENCOUNTER 2023-06-27 15:04 | Day surgery (SDC) | payer BC, MEDICARE ==
[2023-06-27] MEDS ORDERED: Depo-Medrol 40 MG/ML IM ONE (15:05)
[2023-06-27] MEDS ORDERED: BUPIVACAINE 0.5% VIAL IJ ONE (15:05)
[2023-06-27] MEDS ORDERED: XYLOCAINE-MPF 1% 5ML SDV IJ ONE (15:05)
[2023-06-27] MEDS ORDERED: DIPRIVAN 200 MG/20 ML IV ONE (16:26)
[2023-06-27] MEDS ORDERED: Lactated Ringers 1,000 ML IV ONE (16:53)
--- NOTE | 2023-06-27 19:49 | XRAY ---
Indication: Right L3-S1 RFA. Intraoperative fluoroscopy provided for 23 seconds. 4 digital spot images submitted for interpretation demonstrates posterior needle tips projecting over the expected right L3-S1 nerve roots. Correlate with intraoperative findings/report.
--- NOTE | 2023-06-28 12:37 | XRAY ---
23 seconds of fluoroscopy was used in surgery for a right L3-S1 RFA.
== END 2023-06-27 16:59 | disposition home or self-care (01) ==
LOC: SDC-PAIN 15:04
PROVIDERS: ATTEND Psychiatry & Neurology Pain Medicine
DX: M47.816 Spondylosis without myelopathy or radiculopathy, lumbar region (principal)
CPT/HCPCS: 64635; 64636; 72100; 77002; J1030; J2704

== ENCOUNTER 2023-07-04 15:12 | Day surgery (SDC) | payer BC, MEDICARE ==
[2023-07-04] MEDS ORDERED: XYLOCAINE-MPF 1% 5ML SDV IJ ONE (15:13)
[2023-07-04] MEDS ORDERED: Depo-Medrol 40 MG/ML IM ONE (15:13)
[2023-07-04] MEDS ORDERED: BUPIVACAINE 0.5% VIAL IJ ONE (15:13)
[2023-07-04] MEDS ORDERED: DIPRIVAN 200 MG/20 ML IV ONE (16:26)
[2023-07-04] MEDS ORDERED: Lactated Ringers 1,000 ML IV ONE (17:19)
--- NOTE | 2023-07-04 20:52 | XRAY ---
Indication: Left L3-S1 RFA. Intraoperative fluoroscopy provided for 18 seconds. 5 digital spot images submitted for interpretation demonstrates posterior needle tips projecting over the expected left L3-S1 nerve roots. Correlate with intraoperative findings/report.
--- NOTE | 2023-07-05 09:17 | XRAY ---
18 seconds of fluoroscopy was used in surgery for a left L3-S1 RFA.
== END 2023-07-04 17:02 | disposition home or self-care (01) ==
LOC: SDC-PAIN 15:12
PROVIDERS: ATTEND Psychiatry & Neurology Pain Medicine
DX: M47.816 Spondylosis without myelopathy or radiculopathy, lumbar region (principal)
CPT/HCPCS: 64635; 64636; 72100; 77002; J1030; J2704

== ENCOUNTER 2023-09-19 14:29 | Day surgery (SDC) | payer BC, MEDICARE ==
[2023-09-19] MEDS ORDERED: LIDOCAINE HCL 1% 50 MG/5 ML VL PF IJ ONE (14:30)
[2023-09-19] MEDS ORDERED: Decadron 4 MG INJ IV ONE (14:30)
[2023-09-19] MEDS ORDERED: BUPIVACAINE 0.5% VIAL IJ ONE (14:30)
[2023-09-19] MEDS ORDERED: DIPRIVAN 200 MG/20 ML IV ONE (16:36)
[2023-09-19] MEDS ORDERED: Lactated Ringers 1,000 ML IV ONE (16:57)
--- NOTE | 2023-09-19 18:22 | XRAY ---
Indication: Right C2-C4 RFA. Intraoperative fluoroscopy provided for 18 seconds. 2 digital spot image submitted for interpretation demonstrates posterior needle tips projecting over the expected right C2-C4 nerve roots. Correlate with intraoperative findings/report.
--- NOTE | 2023-09-20 12:01 | XRAY ---
18 seconds of fluoroscopy was used in surgery for a right C2-C4 RFA.
== END 2023-09-19 17:05 | disposition home or self-care (01) ==
LOC: SDC-PAIN 14:29
PROVIDERS: ATTEND Psychiatry & Neurology Pain Medicine
DX: M47.812 Spondylosis without myelopathy or radiculopathy, cervical region (principal)
CPT/HCPCS: 64635; 64636; 72040; 77002; J1100; J2001; J2704

== ENCOUNTER 2023-09-26 15:08 | Day surgery (SDC) | payer BC, MEDICARE ==
[2023-09-26] MEDS ORDERED: Decadron 4 MG INJ IV ONE (15:09)
[2023-09-26] MEDS ORDERED: BUPIVACAINE 0.5% VIAL IJ ONE (15:09)
[2023-09-26] MEDS ORDERED: LIDOCAINE HCL 1% 50 MG/5 ML VL PF IJ ONE (15:09)
[2023-09-26] MEDS ORDERED: DIPRIVAN 200 MG/20 ML IV ONE (16:34)
[2023-09-26] MEDS ORDERED: Lactated Ringers 1,000 ML IV ONE (17:24)
--- NOTE | 2023-09-26 19:06 | XRAY ---
Indication: Left C2-C4 RFA. Intraoperative fluoroscopy provided for 17 seconds. 2 digital spot image submitted for interpretation demonstrates posterior needle tips projecting over expected left C2-C4 nerve roots. Correlate with intraoperative findings/report.
--- NOTE | 2023-09-27 08:50 | XRAY ---
17 seconds of fluoroscopy was used in surgery for a left C2-C4 RFA.
== END 2023-09-26 17:09 | disposition home or self-care (01) ==
LOC: SDC-PAIN 15:08
PROVIDERS: ATTEND Psychiatry & Neurology Pain Medicine
DX: M47.812 Spondylosis without myelopathy or radiculopathy, cervical region (principal)
CPT/HCPCS: 64633; 64634; 72040; 77002; J1100; J2001; J2704

== ENCOUNTER 2024-05-08 13:59 | Day surgery (SDC) | payer BC, MEDICARE ==
[2024-05-08] MEDS ORDERED: Depo-Medrol 40 MG/ML IM ONE (14:00)
[2024-05-08] MEDS ORDERED: BUPIVACAINE 0.5% VIAL IJ ONE (14:00)
[2024-05-08] MEDS ORDERED: LIDOCAINE HCL 1% AMPUL 5 ML IJ ONE (14:00)
[2024-05-08] MEDS ORDERED: DIPRIVAN 200 MG/20 ML IV ONE (15:27)
--- NOTE | 2024-05-08 21:44 | XRAY ---
Indication: Right L3-S1 RFA. Intraoperative fluoroscopy provided for 22 seconds. 4 digital spot images submitted for interpretation demonstrates posterior needle tips projecting over expected right L3-S1 nerve roots. Correlate with intraoperative findings/report.
--- NOTE | 2024-05-08 21:59 | XRAY ---
22 seconds of fluoroscopy was used in surgery for a right L3-S1 RFA.
== END 2024-05-08 16:00 | disposition home or self-care (01) ==
LOC: SDC-PAIN 13:59
PROVIDERS: ATTEND Psychiatry & Neurology Pain Medicine
DX: M47.816 Spondylosis without myelopathy or radiculopathy, lumbar region (principal)
CPT/HCPCS: 64635; 64636; 72100; 77002; J2704

== ENCOUNTER 2024-05-14 15:17 | Day surgery (SDC) | payer BC, MEDICARE ==
[2024-05-14] MEDS ORDERED: LIDOCAINE HCL 1% AMPUL 5 ML IJ ONE (15:18)
[2024-05-14] MEDS ORDERED: BUPIVACAINE 0.5% VIAL IJ ONE (15:18)
[2024-05-14] MEDS ORDERED: Depo-Medrol 40 MG/ML IM ONE (15:18)
[2024-05-14] MEDS ORDERED: DIPRIVAN 200 MG/20 ML IV ONE (16:53)
--- NOTE | 2024-05-14 18:34 | XRAY ---
Indication: Left L3-S1 RFA. Intraoperative fluoroscopy provided for 14 seconds. 5 digital spot images submitted for interpretation demonstrates posterior needle tips projecting over the expected left L3-S1 nerve roots. Correlate with intraoperative findings/report.
--- NOTE | 2024-05-15 09:21 | XRAY ---
14 seconds of fluoroscopy was used in surgery for a left L3-S1 RFA.
== END 2024-05-14 17:23 | disposition home or self-care (01) ==
LOC: SDC-PAIN 15:17
PROVIDERS: ATTEND Psychiatry & Neurology Pain Medicine
DX: M47.816 Spondylosis without myelopathy or radiculopathy, lumbar region (principal)
CPT/HCPCS: 64635; 64636; 72100; 77002; J2704

== ENCOUNTER 2024-08-27 14:54 | Day surgery (SDC) | payer BC, MEDICARE ==
[2024-08-27] MEDS ORDERED: BUPIVACAINE 0.5% VIAL IJ ONE (14:55)
[2024-08-27] MEDS ORDERED: Depo-Medrol 40 MG/ML IM ONE (14:55)
[2024-08-27] MEDS ORDERED: Lactated Ringers 500 ML IV ONE (15:34)
[2024-08-27] MEDS ORDERED: propofoL IV ONE (17:22)
--- NOTE | 2024-08-27 19:11 | XRAY ---
Indication: Left shoulder and subacromial bursa injection. Intraoperative fluoroscopy provided for 26 seconds. 3 digital spot image submitted for interpretation demonstrates needle tip projecting over left glenohumeral joint superiorly. Second needle tip subacromial. Small amount of contrast injected for needle tip placement. Correlate with intraoperative findings/report.
--- NOTE | 2024-08-28 09:44 | XRAY ---
26 seconds of fluoroscopy was used in surgery for a left intra-articular shoulder and subacromial bursa injection.
== END 2024-08-27 17:53 | disposition home or self-care (01) ==
LOC: SDC-PAIN 14:54
PROVIDERS: ATTEND Psychiatry & Neurology Pain Medicine
DX: M19.012 Primary osteoarthritis, left shoulder (principal); M75.52 Bursitis of left shoulder
CPT/HCPCS: 20610; 73030; 77002; J2704; Q9966

== ENCOUNTER 2025-03-18 15:35 | Day surgery (SDC) | payer BC, MEDICARE ==
[2025-03-18] MEDS ORDERED: methylPREDNISolone acetate IM ONE (15:36)
[2025-03-18] MEDS ORDERED: BUPIVACAINE 0.5% VIAL IJ ONE (15:36)
[2025-03-18] MEDS ORDERED: LIDOCAINE HCL 1% 50 MG/5 ML VL IJ ONE (15:36)
[2025-03-18] MEDS ORDERED: propofoL IV ONE (17:38)
[2025-03-18] MEDS ORDERED: Lactated Ringers 1,000 ML IV ONE (17:56)
--- NOTE | 2025-03-18 19:07 | XRAY ---
Indication: Left L3-S1 RFA. Intraoperative fluoroscopy provided for 20 seconds. 3 digital spot image submitted for interpretation demonstrates posterior needle tips projecting over expected left L3-S1 nerve roots. Correlate with intraoperative findings/report.
--- NOTE | 2025-03-19 10:15 | XRAY ---
20 seconds of fluoroscopy used in surgery for a left L3-S1 RFA.
== END 2025-03-19 01:00 | disposition home or self-care (01) ==
LOC: SDC-PAIN 15:35
PROVIDERS: ATTEND Psychiatry & Neurology Pain Medicine
DX: M47.817 Spondylosis without myelopathy or radiculopathy, lumbosacral region (principal)